=== PATIENT | female | born 1995 | race Caucasian/White ===

== ENCOUNTER 2018-02-13 18:00 | Emergency (ER) | payer OTHER ==
[2018-02-13 18:12] VITALS: BP 115/77; PULSE 85; TEMP 98.5; BMI 24.6
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
[2018-02-13] MEDS ORDERED: ACETAMINOPHEN 325 MG TABLET (FP) PO ONE (18:28)
[2018-02-13] MEDS ORDERED: ACETAMINOPHEN 325 MG TABLET (FP) ONE (18:31)
== END 2018-02-13 19:43 | disposition home or self-care (01) ==
LOC: FER 18:00
DX: R51 Headache (principal); V43.52XA Car driver injured in collision with other type car in traffic accident, initial encounter; Y93.89 Activity, other specified; Y92.414 Local residential or business street as the place of occurrence of the external cause
CPT/HCPCS: 70450-TC; 84703; 99282-25